=== PATIENT | female | born 1950 | race Caucasian/White ===

== ENCOUNTER 2019-08-09 09:23 | Outpatient (CLI) | payer MEDICARE, BC, SELFPAY ==
--- NOTE | ~2019-08-09 | US_ITS ---
EXAMINATION: US pelvic complete w TV EXAM DATE: 08/09/2019 10:29 INDICATION: Postmenopausal bleeding. TECHNIQUE: Pelvic transabdominal and transvaginal sonogram was performed. There are multiple graysca le and Doppler images available for interpretation. There is no prior study for comparison. FINDINGS: Uterus measures 8.1 x 4.1 x 4.9 cm, and is morphologically normal. Endometrial stripe nik sures 25 mm, abnormally thickened. There are multiple sizable nabothian cysts. There is no free pelvi c fluid. Right adnexa: The ovary is not identified. There is no adnexal mass. Left adnexa: The ovary is not identified. There is no adnexal mass. IMPRESSION: Significantly thickened endometrium, differential diagnosis including endometrial cancer and hyperplasia. Recommend histologic correlation. Reviewed, dictated and finalized at location B. [facility]ING [employer]TER IMPRESSION: Significantly thickened endometrium, differential diagnosis includi ng endometrial cancer and hyperplasia. Recommend histologic correlation.
== END 2019-08-09 09:24 | disposition home or self-care (01) ==
PROVIDERS: PCP Nurse Practitioner Adult Health; Visit Provider Obstetrics & Gynecology
DX: N95.0 Postmenopausal bleeding (principal); R93.89 Abnormal findings on diagnostic imaging of other specified body structures
CPT/HCPCS: 76830; 76856

== ENCOUNTER 2020-03-07 13:56 | Outpatient (CLI) | payer MEDICARE, BC, SELFPAY ==
--- NOTE | ~2020-03-07 | US_ITS ---
EXAMINATION: US venous doppler LE RT DATE: 03/07/2020 14:40 INDICATION: Right lower limb pain TECHNIQUE: Grayscale ultrasound images without and with compression and Doppler ultrasound images of the right lower extremity veins were obtained. COMPARISON: None. FINDINGS: The visualized portions of right common femoral vein, profunda (deep) femoral vein, femoral vein, pop liteal vein, peroneal trunk, posterior tibial veins, gastrocnemius vein and greater saphenous vein ou tflow are patent. The peroneal veins were unable to be visualized. IMPRESSION: 1. No deep venous thrombosis in the right lower limb. Reviewed, dictated and finalized at location A.
== END 2020-03-07 13:57 | disposition home or self-care (01) ==
PROVIDERS: PCP Nurse Practitioner Adult Health; Visit Provider Nurse Practitioner Adult Health
DX: M79.661 Pain in right lower leg (principal)
CPT/HCPCS: 93971

== ENCOUNTER 2020-12-03 14:30 | Outpatient (RCR) | payer MEDICARE, BC, SELFPAY ==
[2020-10-16 09:43] VITALS: BMI 42.0
[2020-10-16 09:50] VITALS: BMI 42.0
== END 2021-01-06 11:08 | disposition home or self-care (01) ==
LOC: ANHDMC 14:30
PROVIDERS: PCP Nurse Practitioner Adult Health; Visit Provider Nurse Practitioner Adult Health
DX: E11.65 Type 2 diabetes mellitus with hyperglycemia (principal); Z71.3 Dietary counseling and surveillance; Z71.89 Other specified counseling
CPT/HCPCS: 97802; G0108; G0109

== ENCOUNTER 2021-01-08 11:03 | Emergency (ER) | payer MEDICARE, BC, SELFPAY ==
--- NOTE | ~2021-01-08 | CT_ITS ---
EXAMINATION: CT brain wo con DATE: 01/08/2021 11:38 INDICATION: Dizziness TECHNIQUE: Computed tomography (CT) of the head was performed without intravenous contrast. Sagittal and coronal reconstructions were performed. The mA was adjusted according to patient size. Iterative reconstruction technique was employed. The dose-length product was 605.33 mGy-cm. COMPARISON: head CT dated 05/04/2017 and brain MR dated 05/05/2017 FINDINGS: No acute intracranial hemorrhage, acute infarction or abnormal extra axial fluid collection. There is moderate scattered white matter hypoattenuation consistent with chronic small vessel ischemic diseas e. Symmetric prominence of the sulci consistent with mild age-appropriate diffuse cerebral volume los s. Ventricles are normal and symmetric. No mass/mass effect. Complete opacification of the visualized left maxillary sinus and partial opacification of the right maxillary sinus with a large mucous rete ntion cyst. The orbits and mastoid air cells are normal. Intracranial calcified cerebral atherosclero sis is noted. IMPRESSION: 1. Age-related changes including mild diffuse volume loss and moderate scattered white matter hypoatt enuation consistent with chronic small vessel ischemic disease. 2. Chronic bilateral maxillary sinus disease. Reviewed, dictated and finalized at location A. IMPRESSION: 1. Age-related changes including mild diffuse volume loss and moderate scattere d white matter hypoattenuation consistent with chronic small vessel ischemic di sease. 2. Chronic bilateral maxillary sinus disease.
[2021-01-08 11:06] VITALS: BP 151/76; PULSE 81; RESP 16; TEMP 37.7; O2SAT 96
--- NOTE | 2021-01-08 11:16 | ECG_ITS ---
Measurements Intervals [place] Rate: 76 P: 45 CT: 184 QRS: 21 QRSD: 82 T: 39 QT: 370 QTc: 418 Interpretive Statements SINUS RHYTHM BASELINE ARTIFACT- I, II, AVR, AVL, V1 NORMAL ECG Electronically Signed On 01-08-2021 11:32:49 CDT by Matt Garcia D.O.
[2021-01-08 12:06] LABS: Basophils Percent Auto 0.3 % (0.2-1.2); Eosinophils Absolute Auto 0.2 K/mm3 (0-0.3); Hematocrit 38.6 % (37.0-47.0); Hemoglobin 12.6 g/dL (12.0-15.0); Immature Granulocyte Absolute 0.01 K/mm3 (0.00-0.031); Immature Granulocyte Percent A 0.2 % (0-0.5); Lymphocytes Absolute Auto 1.41 K/mm3 (0.9-3.2); Lymphocytes Percent Auto 21.5 % (18.3-44.2); Mean Corpuscular HGB Conc 32.6 g/dl (32-36); Mean Corpuscular Hemoglobin 30.4 pg (26-34); Mean Corpuscular Volume 93.2 fl (80-100); Mean Platelet Volume 9.8 fl (7.4-10.4); Monocytes Absolute Auto 0.6 K/mm3 (0.1-0.6); Monocytes Percent Auto 8.7 % (2.6-8.5); Neutrophils Absolute Auto 4.4 K/mm3 (1.3-6.7); Neutrophils Percent Auto 66.3 % (45.5-73.1); Platelet Count Result 211 k/mm3 (150-375); Red Blood Count 4.14 M/mm3 (4.2-5.4); Red Cell Distribution Width 13.6 % (11.5-14.5); White Blood Count 6.6 K/mm3 (4.5-10.0)
[2021-01-08 12:32] LABS: Alanine Aminotransferase 27 U/L (4-35); Albumin Level 4.3 g/dL (3.5-5.1); Alkaline Phosphatase 88 U/L (38-126); Anion Gap 9 mmol/L (8-16); Aspartate Amino Transferase 36 U/L (14-36); Bilirubin,Total 0.4 mg/dL (0.2-1.3); Blood Urea Nitrogen 23 mg/dL (7-17); Calcium 9.8 mg/dL (8.4-10.2); Carbon Dioxide 23 mmol/L (22-30); Chloride 108 mmol/L (98-107); Estimated CRCL calculation 61 ml/min; Estimated Glomerular Filt Rate > 60; Glucose 102 mg/dL (65-105); Potassium 4.4 mmol/L (3.4-5.0); Sodium 140 mmol/L (137-145)
[2021-01-08 12:40] LABS: Add Urine Microscopic? YES; Appearance Urine Clear (Clear); Bilirubin Urine Negative (Negative); Blood Urine Negative (Negative); Color Urine Yellow (Yellow); Glucose Urine UA Negative (Negative); Ketones Urine Negative (Negative); Leukocyte Esterase Ur Negative LEU/UL (Negative); Mucus Urine Rare /lpf; Nitrate Urine Negative (Negative); Protein Urine 1+ mg/dL (Negative); RBC Urine 0-2 /hpf (0-2); Specific Grav Ur 1.011 (1.001-1.035); Squamous Epithelial Cell Urine Few /hpf (Few); Urobilinogen Urine Negative mg/dL (<2.0); WBC Urine 0-3 /hpf
[2021-01-08] MEDS: LACTATED RINGERS 1,000 ML 999 ML IV CONT (13:03)
--- NOTE | 2021-01-08 13:09 | ED.DIZZY ---
HPI - Dizziness General Chief Complaint: Recheck/Abnormal Lab/Rx Stated Complaint: ELEVATED BP, DIZZY Time Seen by Provider: 01/08/21 12:34 Source: patient Mode of arrival: ambulatory Limitations: no limitations History of Present Illness HPI Narrative: Patient is a 70-year-old female complaining of sudden onset of dizziness, and when her daughter checked her blood pressure it was elevated at 170s over 90s started prior to arrival. Patient's blood pressure now down to 140s over 80s and dizziness resolved. Patient currently denies any symptoms. Patient denies any headache, speech or visual disturbance, focal weakness or numbness, unsteady gait, chest pain, shortness of breath, nausea, or vomiting. Related Data Home Medications Medication Instructions Recorded Confirmed allopurinol 100 mg tablet 100 mg PO DAILY 08/02/19 11/05/20 aspirin 81 mg tablet,delayed 81 mg PO DAILY 08/02/19 11/05/20 release cholecalciferol (vitamin D3) 50 2,000 unit PO DAILY 08/02/19 11/05/20 mcg (2,000 unit) tablet irbesartan 300 mg tablet 300 mg PO DAILY 08/02/19 11/05/20 metformin 500 mg tablet,extended 500 mg PO DAILY 08/02/19 11/05/20 release 24 hr oxybutynin chloride 5 mg tablet 5 mg PO DAILY 08/02/19 11/05/20 simvastatin 10 mg tablet 10 mg PO DAILY 08/02/19 11/05/20 vitamin B complex 1 tablet PO DAILY 08/02/19 11/05/20 cyanocobalamin (vitamin B-12) 500 mcg INTRANASAL 07/08/20 11/05/20 mcg/spray nasal spray levetiracetam 500 mg tablet 500 mg PO Q12H 07/08/20 11/05/20 tramadol 50 mg tablet 50 mg PO Q6H PRN 07/08/20 11/05/20 diclofenac sodium 1 % topical gel 2 g TOPICAL QID 08/08/20 11/05/20 levothyroxine 50 mcg capsule 50 mcg PO DAILY 08/08/20 11/05/20 dulaglutide 1.5 mg/0.5 mL 4.5 mg SUB-Q WEEKLY ml 11/03/20 11/05/20 subcutaneous pen injector glimepiride 2 mg tablet 1 mg PO QAM tablet 11/03/20 11/05/20 Allergies Allergy/AdvReac Type Severity Reaction Status Date / Time codeine Allergy Unknown Unknown Verified 11/03/20 10:29 hydrocodone Allergy Unknown Unknown Verified 11/03/20 10:29 morphine Allergy Unknown Unknown Verified 11/03/20 10:29 Review of Systems Review of Systems: All systems reviewed & are unremarkable except as noted in HPI and below Constitutional: Constitutional: Denies body ache(s), Denies chills, Denies excessive sweating, Denies fatigue, Denies fever(s), Denies headache(s), Denies lethargy, Denies malaise, Denies weakness and Denies weight loss Eyes: Eyes: Denies blurry vision, Denies change in vision and Denies loss of vision ENT: Denies dizziness, Denies ear discharge, Denies headache(s), Denies lip swelling, Denies epistaxis, Denies nasal congestion, Denies neck pain, Denies throat swelling and Denies tongue swelling Cardiovascular: Cardiovascular: Denies chest pain, Denies chest pain at rest, Denies chest pain with activity, Denies diaphoresis, Denies rapid heart rate, Denies edema, Denies irregular heart rhythm, Denies lightheadedness, Denies palpitations, Denies dyspnea and Denies dyspnea on exertion Respiratory: Respiratory: Denies chest congestion, Denies cough, Denies hemoptysis, Denies dyspnea and Denies dyspnea on exertion Gastrointestinal: Gastrointestinal: Denies abdominal pain, Denies melena, Denies hematochezia, Denies diarrhea, Denies nausea, Denies vomiting and Denies hematemesis Musculoskeletal: Musculoskeletal: Denies abnormal gait, Denies deformity, Denies joint swelling, Denies limited range of motion, Denies neck pain and Denies numbness Neurologic: Denies Abnormal speech present, Denies abnormal gait, Denies confusion, Denies headache(s), Denies focal weakness, Denies loss of vision, Denies numbness, Denies Other visual disturbances, Denies Sensory deficit (Neuro) and Denies weakness Psychiatric: Psychiatric: Denies confusion, Denies depression, Denies auditory hallucinations, Denies homicidal ideation and Denies suicidal ideation Endocrine: Endocrine: Denies cold intolerance, Denies excessive s
[2021-01-08 13:25] LABS: Troponin I < 0.012 ng/mL (0.000-0.034)
[2021-01-08 14:21] VITALS: BP 148/68; PULSE 64; RESP 17; O2SAT 100
== END 2021-01-08 14:22 | disposition home or self-care (01) ==
PROVIDERS: Emergency Medicine; Emergency Provider Emergency Medicine; PCP Nurse Practitioner Adult Health
DX: R42 Dizziness and giddiness (principal); I10 Essential (primary) hypertension; E11.9 Type 2 diabetes mellitus without complications; Z79.84 Long term (current) use of oral hypoglycemic drugs; E78.5 Hyperlipidemia, unspecified; E03.9 Hypothyroidism, unspecified; G40.909 Epilepsy, unspecified, not intractable, without status epilepticus
CPT/HCPCS: 36415; 70450; 80053; 81001; 84484; 85025; 93005; 96360; 99284; J7120

== ENCOUNTER 2021-02-17 11:42 | Outpatient (RCR) | payer MEDICARE, BC, SELFPAY | END 2021-02-17 11:57 | disposition home or self-care (01) | LOC: ANHDMC 11:42 | PROVIDERS: PCP Nurse Practitioner Adult Health; Visit Provider Nurse Practitioner Adult Health | DX: E11.65 Type 2 diabetes mellitus with hyperglycemia (principal); Z71.89 Other specified counseling | CPT/HCPCS: G0108 ==

== ENCOUNTER 2022-05-10 07:05 | Inpatient (IN) | payer MEDICARE, BC, SELFPAY ==
[2022-05-10] VITALS (23 sets, daily range): BP systolic 138–190; BP diastolic 74–133; PULSE 82–137; RESP 12–20; TEMP 36.8–37.2; O2SAT 92–99; BMI 42.1
--- NOTE | ~2022-05-10 | XR_ITS ---
EXAMINATION: XR chest 1V portable DATE: 05/10/2022 07:37 INDICATION: Cerebrovascular accident. TECHNIQUE: A single frontal view of the chest was obtained. COMPARISON: Chest 2 views 06/18/2006 FINDINGS: There is mild atelectasis in left lower lung zone. No pleural effusion or pneumothorax. The heart size is normal. There are surgical clips in left axilla. IMPRESSION: 1. Mild atelectasis in left lower lung zone. Reviewed, dictated and finalized at location A.
--- NOTE | ~2022-05-10 | XR_ITS ---
EXAM: XR abdomen/kub 1V DATE: 05/11/2022 16:20 HISTORY: check for coil . COMPARISON: None available. FINDINGS: Gallstones. Incompletely visualized bilateral uncomplicated appearing hip arthroplasties. Small left pleural effusion adjacent subsegmental atelectasis/consolidation. Normal bowel gas pattern . No organomegaly. No abnormal abdominal calcification. Regional bones and soft tissues normal for ag e. IMPRESSION: No unexpected radiopaque foreign body. Reviewed, dictated and finalized at location K.
--- NOTE | ~2022-05-10 | CT_ITS ---
EXAMINATION: CT brain wo con DATE: 05/10/2022 07:14 INDICATION: Cerebrovascular accident. Slurred speech. Right facial droop. TECHNIQUE: Computed tomography (CT) of the head was performed without intravenous contrast. The mA wa s adjusted according to patient size. Iterative reconstruction technique was employed. The dose-lengt h product was 605.33 mGy-cm. COMPARISON: Head CT 01/08/2021 FINDINGS: There are scattered areas of low attenuation in the cerebral white matter. There is no intr acranial hemorrhage, acute infarction, or abnormal intracranial mass lesion. The ventricles are nnii l in size. There is mucosal thickening in the paranasal sinuses. There are no pathologically enlarged lymph nodes. The mastoid air cells are normal. IMPRESSION: 1. Stable extensive nonspecific cerebral white matter disease, which likely represents chronic small vessel ischemic disease. 2. I discussed this case with Dr. Rivera. Reviewed, dictated and finalized at location A. IMPRESSION: 1. Stable extensive nonspecific cerebral white matter disease, which likely rep resents chronic small vessel ischemic disease. 2. I discussed this case with Dr. Rivera.
--- NOTE | ~2022-05-10 | MR_ITS ---
EXAMINATION: MR brain/brain stem wo/w con DATE: 05/12/2022 09:57 INDICATION: Cerebrovascular accident. TECHNIQUE: Magnetic resonance imaging (MRI) of the brain and brainstem was performed without and with 20 mL MultiHance intravenous contrast. COMPARISON: Brain MRI 05/05/2017, head CT 05/10/2022 FINDINGS: There are patchy acute infarcts involving left frontoparietal region with small area of int raparenchymal hemorrhage. There are scattered areas of nonspecific increased T2-weighted signal inten sity in the cerebral white matter. There is no abnormal mass lesion. There is mucosal thickening in t he paranasal sinuses including a large mucous retention cyst in right maxillary sinus and complete op acification of left maxillary sinus. The mastoid air cells are normal. The orbits are normal. IMPRESSION: 1. Patchy acute infarcts involving left frontoparietal region with small area of intraparenchymal hem orrhage. 2. Extensive nonspecific cerebral white matter disease, which likely represents chronic small vessel ischemic disease. Reviewed, dictated and finalized at location A. IMPRESSION: 1. Patchy acute infarcts involving left frontoparietal region with small area o f intraparenchymal hemorrhage. 2. Extensive nonspecific cerebral white matter disease, which likely represents chronic small vessel ischemic disease.
--- NOTE | ~2022-05-10 | CT_ITS ---
EXAMINATION: CTA brain carotid DATE: 05/10/2022 08:53 INDICATION: Right facial droop. Right arm weakness. TECHNIQUE: Computed tomographic angiography (CTA) of the head was performed with 100 mL Omnipaque-350 intravenous contrast. CTA of the neck was performed with intravenous contrast. Automated exposure co ntrol and iterative reconstruction technique were employed. The dose-length product was 1021.70 mGy-c m. Maximum intensity projection and volume rendered 3D-reconstructions were created by the technologi st on a separate workstation. COMPARISON: Head CT 05/10/2022, brain MRI 05/05/2017 FINDINGS: HEAD CTA: There are scattered areas of low attenuation in the cerebral white matter. There is no intr acranial hemorrhage, acute infarction, or abnormal intracranial mass lesion. The ventricles are nini l in size. There is mucosal thickening in the paranasal sinuses. The orbits are normal. The mastoid a ir cells are normal. The vertebral arteries are codominant. There is no significant stenosis of basil ar artery or the posterior cerebral arteries. There is no significant stenosis of the intracranial in ternal carotid arteries or anterior or middle cerebral arteries. Anterior communicating artery is nor mal. The posterior communicating arteries are normal. There is no aneurysm. NECK CTA: There are no pathologically enlarged lymph nodes. There is no significant stenosis of the v ertebral arteries. There is mild plaque in the proximal internal carotid arteries. There is 0% stenos is of the proximal right internal carotid artery relative to normal distal artery lumen diameter (DON CET criteria). There is 0% stenosis of the proximal left internal carotid artery relative to normal d istal artery lumen diameter. There is severe cervical spondylosis. IMPRESSION: 1. Extensive nonspecific cerebral white matter disease, which likely represents chronic small vessel ischemic disease. 2. No aneurysm or significant intracranial arterial stenosis. 3. 0% stenosis of the proximal internal carotid arteries relative to normal distal artery lumen diame ters (NASCET criteria). Reviewed, dictated and finalized at location A. IMPRESSION: 1. Extensive nonspecific cerebral white matter disease, which likely represents chronic small vessel ischemic disease. 2. No aneurysm or significant intracranial arterial stenosis. 3. 0% stenosis of the proximal internal carotid arteries relative to normal dis glory artery lumen diameters (NASCET criteria).
--- NOTE | 2022-05-10 07:31 | ED.NEUROSD ---
HPI - Neuro Symptoms/Deficit General Chief Complaint: Suspected CVA Stated Complaint: code stroke History of Present Illness HPI Narrative: This is a 72-year-old female presenting for a CVA. last known normal was 11:00 p.m. last night. The patient woke up at 4:00 a.m. to go to the restroom and noticed she was unable to move her right arm. She then called an ambulance came to the hospital. Patient notes that she has right facial droop and right arm weakness. She is also having word-finding difficulty. Related Data Home Medications Medication Instructions Recorded Confirmed allopurinol 100 mg tablet 100 mg PO DAILY 08/02/19 04/06/21 aspirin 81 mg tablet,delayed 81 mg PO DAILY 08/02/19 04/06/21 release (Adult Aspirin Regimen) cholecalciferol (vitamin D3) 50 2,000 unit PO DAILY 08/02/19 04/06/21 mcg (2,000 unit) tablet irbesartan 300 mg tablet 300 mg PO DAILY 08/02/19 04/06/21 metformin 500 mg tablet,extended 500 mg PO DAILY 08/02/19 04/06/21 release 24 hr oxybutynin chloride 5 mg tablet 5 mg PO DAILY 08/02/19 04/06/21 simvastatin 10 mg tablet 10 mg PO DAILY 08/02/19 04/06/21 vitamin B complex (B 1 tablet PO DAILY 08/02/19 04/06/21 Complex-Vitamin B12 tablet) cyanocobalamin (vitamin B-12) 500 mcg intranasal 07/08/20 04/06/21 mcg/spray nasal spray (Nascobal) levetiracetam 500 mg tablet 500 mg PO Q12H 07/08/20 04/06/21 levothyroxine 50 mcg capsule 50 mcg PO DAILY 08/08/20 04/06/21 dulaglutide 1.5 mg/0.5 mL 4.5 mg subcut WEEKLY 11/03/20 04/06/21 subcutaneous pen injector ([facility]) glimepiride 2 mg tablet 1 mg PO QAM 11/03/20 04/06/21 Allergies Allergy/AdvReac Type Severity Reaction Status Date / Time codeine Allergy Unknown Unknown Verified 04/06/21 13:47 hydrocodone Allergy Unknown Unknown Verified 04/06/21 13:47 morphine Allergy Unknown Unknown Verified 04/06/21 13:47 Review of Systems Review of Systems: CONSTITUTIONAL: Denies night sweats. EYES: No eye pain ENT: Denies rhinorrhea CARDIOVASCULAR: Denies palpitations RESPIRATORY: Denies hemoptysis GASTROINTESTINAL: Denies hematemesis GENITOURINARY: Denies hematuria. SKIN: Denies rash MUSCULOSKELETAL: Denies myalgia. NEUROLOGIC: Denies weakness. PSYCHIATRIC: Denies delusions PMFSH Past Medical History Medical History Breast cancer (~09/11/18) Diabetes History of endometrial cancer (~09/12/19) History of Hyperlipemia Hypertension Hyperuricemia Hypothyroid Neuropathy Obesity, morbid, BMI 40.0-49.9 Renal arterial aneurysm (~02/2009) Seizure disorder Vitamin D deficiency Surgical History Surgical History History of arthroscopy of right knee (~2009) History of section History of knee surgery (~03/26/19) History of lumpectomy of left breast History of right hip replacement [place] teeth removed Family History Family History Mother Breast cancer Grandparent Carcinoma of colon Other Diabetes mellitus Family history of arthritis Family history of congenital heart disease Family history of malignant neoplasm Family history of multiple sclerosis Family history of thyroid disease Social History Social History Smoking status: Never smoker Second hand tobacco smoke exposure: No Alcohol intake: current Spiritual care concerns: No Exam Narrative: APPEARANCE: Patient is tearful Head atraumatic. EYES: PERRLA/EOMI, NOSE: Normal no drainage NECK: Supple, Trachea midline RESPIRATORY: CTAB, No increased work of breathing. CARDIOVASCULAR: S1S2 appreciated ABDOMINAL: Soft, nontender, nondistended, MUSCULOSKELETAl: No obvious deformities NEURO: Alert. right-sided facial droop. Decreased strength in the right upper extremity. Normal strength the other 3 of 4 extremities. Sensation light t
[2022-05-10 07:34] LABS: Basophils Absolute Auto 0.1 K/mm3 (0.0-0.1); Basophils Percent Auto 0.7 % (0.2-1.2); Eosinophils Absolute Auto 0.2 K/mm3 (0-0.3); Eosinophils Percent Auto 3.4 % (0-4.4); Hematocrit 38.9 % (37.0-47.0); Hemoglobin 12.6 g/dL (12.0-15.0); Immature Granulocyte Absolute 0.01 K/mm3 (0.00-0.031); Immature Granulocyte Percent A 0.1 % (0-0.5); Lymphocytes Absolute Auto 1.42 K/mm3 (0.9-3.2); Lymphocytes Percent Auto 19.9 % (18.3-44.2); Mean Corpuscular HGB Conc 32.4 g/dl (32-36); Mean Corpuscular Hemoglobin 30.4 pg (26-34); Mean Corpuscular Volume 93.7 fl (80-100); Mean Platelet Volume 9.9 fl (7.4-10.4); Monocytes Absolute Auto 0.5 K/mm3 (0.1-0.6); Monocytes Percent Auto 7.6 % (2.6-8.5); Neutrophils Absolute Auto 4.9 K/mm3 (1.3-6.7); Neutrophils Percent Auto 68.3 % (45.5-73.1); Platelet Count Result 204 k/mm3 (150-375); Red Blood Count 4.15 M/mm3 (4.2-5.4); Red Cell Distribution Width 13.3 % (11.5-14.5); White Blood Count 7.1 K/mm3 (4.5-10.0)
--- NOTE | 2022-05-10 07:39 | ECG_ITS ---
Measurements Intervals [place] Rate: 139 P: 182 [place]: 158 QRS: 51 QRSD: 77 T: -17 QT: 296 QTc: 450 Interpretive Statements ATRIAL TACHYCARDIA SUSPECT ATYPICAL ATRIAL FLUTTER LOW QRS VOLTAGE IN PRECORDIAL LEADS [QRS DEFLECTION < 1.0 mV IN CHEST LEADS] SEPTAL MYOCARDIAL INFARCTION , PROBABLY OLD [40+ ms Q WAVE IN V1/V2] COMPARED TO ECG 01/08/2021 11:21:38 CURRENT RHYTHM REPLACES SINUS Electronically Signed On 05-10-2022 12:54:43 CDT by Sandor Hernandez M.D.
[2022-05-10 07:44] LABS: INR 1.1; Prothrombin Time 13.8 Seconds (11.1-14.7)
[2022-05-10 07:45] LABS: Alanine Aminotransferase 23 U/L (6-35); Albumin Level 4.3 g/dL (3.5-5.1); Alkaline Phosphatase 128 U/L (38-126); Anion Gap 14 mmol/L (8-16); Aspartate Amino Transferase 23 U/L (14-36); Bilirubin,Total 0.4 mg/dL (0.2-1.3); Blood Urea Nitrogen 20 mg/dL (7-17); Calcium 9.3 mg/dL (8.4-10.2); Carbon Dioxide 23 mmol/L (22-30); Chloride 106 mmol/L (98-107); Estimated Glomerular Filt Rate > 60; Glucose 169 mg/dL (65-110); Partial Thromboplastin Time 29.3 SECONDS (22.3-36.8); Potassium 4.3 mmol/L (3.4-5.0); Sodium 143 mmol/L (137-145)
[2022-05-10 07:57] LABS: Troponin I < 0.012 ng/mL (0.000-0.034)
[2022-05-10] MEDS: ONDANSETRON INJ 4 MG/2 ML VIAL IV PUSH (08:23)
[2022-05-10] MEDS: ASPIRIN 81 MG CHEWABLE TABLET 324 MG PO (09:45)
[2022-05-10 12:33] LABS: SARS-CoV-2 RNA PCR Negative
--- NOTE | 2022-05-10 12:50 | WPDNEURCNPN ---
Consult date: 05/10/22 Reason for consult: stroke HPI: Kim Manuel is a 72 year old female admitted to the hospital through the emergency room with history of being last known normal at 11:00 p.m. waking up at 4:00 a.m. to go to the bathroom when she was unable to move her right upper extremity. He then called an ambulance came to the hospital and on initial evaluation was noted to have right facial droop with right upper extremity weakness. Patient had been taking aspirin 81 mg daily in addition to irbesartan 300 mg daily metformin 500 mg daily extended release simvastatin 10 mg daily levetiracetam 500 mg q.12 hours with history of being allergic to codeine hydrocodone and morphine, with no history of smoking though currently drinking an initial exam consistent with a right-sided facial droop and right upper extremity weakness, normal routine blood studies with glucose of 169 SARS-CoV-2 id negative on 05/[address] scan of the head negative for the bleed and CTA with extensive nonspecific white matter disease no aneurysm and no significant intracranial arterial stenosis also 0% stenosis of the proximal internal Review of Systems Review of Systems: All systems reviewed & are unremarkable except as noted in HPI and below PMFSH Past Medical History Medical History Breast cancer (~09/11/18) Diabetes History of endometrial cancer (~09/12/19) History of Hyperlipemia Hypertension Hyperuricemia Hypothyroid Neuropathy Obesity, morbid, BMI 40.0-49.9 Renal arterial aneurysm (~02/2009) Seizure disorder Vitamin D deficiency Surgical History Surgical History History of arthroscopy of right knee (~2009) History of section History of knee surgery (~03/26/19) History of lumpectomy of left breast History of right hip replacement [place] teeth removed Family History Family History Mother Breast cancer Grandparent Carcinoma of colon Other Diabetes mellitus Family history of arthritis Family history of congenital heart disease Family history of malignant neoplasm Family history of multiple sclerosis Family history of thyroid disease Social History Social History Smoking status: Never smoker Second hand tobacco smoke exposure: No Alcohol intake: current Spiritual care concerns: No Meds Home Medications and Allergies Home Medications Medication Instructions Recorded Confirmed Type allopurinol 100 mg tablet 100 mg PO DAILY 08/02/19 04/06/21 History aspirin 81 mg tablet,delayed 81 mg PO DAILY 08/02/19 04/06/21 History release (Adult Aspirin Regimen) cholecalciferol (vitamin D3) 50 2,000 unit PO DAILY 08/02/19 04/06/21 History mcg (2,000 unit) tablet irbesartan 300 mg tablet 300 mg PO DAILY 08/02/19 04/06/21 History metformin 500 mg tablet,extended 500 mg PO DAILY 08/02/19 04/06/21 History release 24 hr oxybutynin chloride 5 mg tablet 5 mg PO DAILY 08/02/19 04/06/21 History simvastatin 10 mg tablet 10 mg PO DAILY 08/02/19 04/06/21 History vitamin B complex (B 1 tablet PO DAILY 08/02/19 04/06/21 History Complex-Vitamin B12 tablet) cyanocobalamin (vitamin B-12) 500 mcg intranasal 07/08/20 04/06/21 History mcg/spray nasal spray (Nascobal) levetiracetam 500 mg tablet 500 mg PO Q12H 07/08/20 04/06/21 History levothyroxine 50 mcg capsule 50 mcg PO DAILY 08/08/20 04/06/21 History dulaglutide 1.5 mg/0.5 mL 4.5 mg subcut WEEKLY 11/03/20 04/06/21 History subcutaneous pen injector ([facility]) glimepiride 2 mg tablet 1 mg PO QAM 11/03/20 04/06/21 History celecoxib 200 mg capsule 200 mg PO DAILY #90 caps 02/02/21 04/06/21 Rx hydrocodone 5 mg-acetaminophen 325 1 - 2 tablet PO Q12H PRN pain #30 02/02/21 04/06/21 Rx mg tablet tabs Allergies Allergy/AdvReac Type Sev
--- NOTE | 2022-05-10 14:00 | PM.IMHP ---
H&P: HPI History of Present Illness Date/Time: 05/10/22 14:00 Chief Complaint: Right arm weakness And difficulty speaking. Narrative: This is a very pleasant 72-year-old female with hypertension, dyslipidemia, diabetes, and hypothyroidism who presented to the emergency department via EMS from home for evaluation of right arm weakness and difficulty speaking. She was in her usual state of health when she went to bed at 23:00 last night. She got up at 04:00 to use the restroom at which time she noticed that she was having difficulties moving her right arm. She phoned her family members to ask for help at which time they noticed that she was having difficulty speaking as well. Fast ED score on EMS arrival was 2 and she was sent immediately to CT scan where a CTA of the head and neck showed extensive nonspecific cerebral white matter disease but no acute findings. Clinically she has had a stroke and she is being admitted in this setting for workup. At the time my evaluation she indicates that the strength in her right arm has improved though she continues to have expressive aphasia. The only complaint she has at today but my evaluation is a diffuse, generalized headache. She denies vertigo, auditory visual changes, dysphagia, chest pain, pleuritic pain, palpitations, sensations of racing heart, shortness of breath, nausea, and vomiting. She has no history of prior stroke. No known history of cardiac dysrhythmia however she sounds to be tachycardic and irregular rhythm at the time of my evaluation. Review of Systems Review of Systems: Twelve systems were reviewed and are negative except for as per HPI. [facility] Past Medical History Medical History Breast cancer (~09/11/18) Diabetes History of endometrial cancer (~09/12/19) History of Hyperlipemia Hypertension Hyperuricemia Hypothyroid Neuropathy Obesity, morbid, BMI 40.0-49.9 Renal arterial aneurysm (~02/2009) Seizure disorder Vitamin D deficiency Surgical History Surgical History History of arthroscopy of right knee (~2009) History of section History of knee surgery (~03/26/19) History of lumpectomy of left breast History of right hip replacement [place] teeth removed Family History Family History Mother Breast cancer Grandparent Carcinoma of colon Other Diabetes mellitus Family history of arthritis Family history of congenital heart disease Family history of malignant neoplasm Family history of multiple sclerosis Family history of thyroid disease Social History Social History Smoking status: Never smoker Second hand tobacco smoke exposure: No Alcohol intake: never Substance use: never Has the Lack of Transportation Kept You From Medical Appointments or From Getting Medications?: No Within the Past 12 Months, Were You Worried Whether Your Food Would Run Out Before You Got Money to Buy More?: Never True What is Your Housing Situation Today?: I Have Housing Are You Worried That in the Next 2 Months, You May Not Have Your Own Housing to Live In?: No Do You Have Trouble Paying Your Heating Or Electricity Bill?: No Do You Have Trouble Paying For Medicines?: No Are You Currently Unemployed and Looking for Work?: No Highest Level of Education Completed: Bachelor's Degree Do You Have Trouble With Childcare or the Care of a Family Member?: No Spiritual care concerns: No Meds Home Medications and Allergies Home Medications Medication Instructions Recorded Confirmed Type allopurinol 100 mg tablet 100 mg PO DAILY 08/02/19 05/10/22 History aspirin 81 mg tablet,delayed 81 mg PO DAILY 08/02/19 05/10/22 History release (Adult Aspirin Regimen) cholecalciferol (vitamin D3) 50 2,000 unit PO DAILY 08/02/19 05/10/22 History mcg (2,
--- NOTE | 2022-05-10 16:21 | PCSTNOTE ---
Please refer to the Bedside Swallow Evaluation in the EMR. Please note, silent aspiration cannot be ruled out at bedside.
[2022-05-11] VITALS (7 sets, daily range): BP systolic 113–117; BP diastolic 65–74; PULSE 79–94; RESP 16–17; TEMP 36.4–37.1; O2SAT 94–98
--- NOTE | 2022-05-11 00:01 | ECHO_ITS ---
Patient Info Name: Kim Manuel Age: 72 years : 1950 Gender: Female Ht: 64 in Wt: 245 lbs BSA: 2.30 m2 HR: 88 bpm BP: 139 / 80 mmHg Heart Rhythm: Sinus Rhythm Technical Quality: Fair Exam Date: 05/11/2022 7:56 AM Exam Location: [facility] Pulmonary Patient Status: Outpatient Admit Date: 05/10/2022 Staff Ordering Physician: Kisha Woody PA-C Glass Embosser: Jigna Felipe RDCS Attending Provider: Lan Lockhart MD Referring Physician: Bong BLAIR; Exam Type: CA echo dop bubble study w con Study Info Indications - CVA Complete two-dimentional, color flow and Doppler transthoracic echocardiogram is performed with agitated saline and with contrast to opacify the left ventricle and to improve the delineation of the left ventricle endocardial borders. Contrast/Agitated Saline Contrast/Ag. Saline: Definity Amount: 3.00 ml Administered By: Jigna Felipe RDCS Existing IV Access: Yes IV Access Condition: patent with no signs of infiltration Contrast/Ag. Saline: Agitated Saline Amount: 30.00 ml Administered By: Jigna Felipe RDCS Existing IV Access: Yes IV Access Condition: patent with no signs of infiltration Summary 1. Left ventricular systolic function is normal, estimated at >70%. 2. The left ventricular diastolic function is grade I diastolic dysfunction. 3. Right ventricular systolic function is normal. 4. No significant valvular disease. 5. Negative bubble study. Left Ventricle Left ventricular chamber dimension is normal. Left ventricular systolic function is normal, estimated at >70%. There is no increased left ventricular wall thickness. The left ventricular diastolic function is grade I diastolic dysfunction. Right Ventricle Right ventricular chamber dimension is normal. Right ventricular systolic function is normal. Left Atria Left atrial chamber dimension is normal. Right Atria Right atrial chamber dimension is normal. Atrial Septum Intact interatrial septum visualized by agitated saline imaging. Aortic Valve The aortic valve is not well visualized. There is no aortic valve stenosis. There is no aortic valve regurgitation. Pulmonic Valve The pulmonic valve is not well visualized. Mitral Valve The mitral valve has normal leaflets. There is no mitral valve stenosis. There is no mitral valve regurgitation. Tricuspid Valve The tricuspid valve leaflets are not well visualized. There is no significant tricuspid valve stenosis. There is trace tricuspid valve regurgitation. Pericardium/Pleural There is no pericardial effusion. Aorta The aortic root size at the sinus of Valsalva is normal. Left Ventricular Outflow Tract Name Value Normal LVOT 2D LVOT Diameter 2.0 cm LVOT Doppler LVOT Peak Gradient 4 mmHg LVOT Mean Gradient 2 mmHg LVOT VTI 18 cm LVOT VTI/AV VTI Ratio 0.7 LVOT Stroke Volume
[2022-05-11] MEDS: LEVOTHYROXINE SODIUM 50 MCG TABLET PO (06:58)
[2022-05-11 07:01] LABS: Hematocrit 38.3 % (37.0-47.0); Hemoglobin 12.3 g/dL (12.0-15.0); Mean Corpuscular HGB Conc 32.1 g/dl (32-36); Mean Corpuscular Hemoglobin 30.3 pg (26-34); Mean Corpuscular Volume 94.3 fl (80-100); Platelet Count Result 213 k/mm3 (150-375); Red Blood Count 4.06 M/mm3 (4.2-5.4); Red Cell Distribution Width 13.3 % (11.5-14.5); White Blood Count 6.4 K/mm3 (4.5-10.0)
[2022-05-11 07:06] LABS: Alanine Aminotransferase 22 U/L (6-35); Alkaline Phosphatase 100 U/L (38-126); Anion Gap 8 mmol/L (8-16); Aspartate Amino Transferase 26 U/L (14-36); Bilirubin,Total 0.5 mg/dL (0.2-1.3); Blood Urea Nitrogen 17 mg/dL (7-17); Calcium 9.1 mg/dL (8.4-10.2); Carbon Dioxide 26 mmol/L (22-30); Chloride 104 mmol/L (98-107); Estimated CRCL calculation 60 ml/min; Estimated Glomerular Filt Rate > 60; Glucose 153 mg/dL (65-110); Potassium 4.2 mmol/L (3.4-5.0); Sodium 138 mmol/L (137-145)
[2022-05-11 08:00] LABS: Hemoglobin A1C 7.2 % (<5.7)
[2022-05-11 08:01] LABS: Thyroid Stimulating Hormone Reflex 0.176 uIU/mL (0.465-4.68)
[2022-05-11 08:32] LABS: Free T4 Free Thyroxine Reflex 1.23 ng/dL (0.78-2.19)
[2022-05-11] MEDS: PERFLUTREN LIPID MICROSPHERES 1.5 ML VIAL DILUTED TO 10 ML TOTAL VOLUME IV PUSH (08:33)
--- NOTE | 2022-05-11 08:33 | IVDEFINITY ---
Prior to administration of IV Definity the patient was educated on the risks and benefits of the imaging enhancing agent including potential adverse side effects. The patient verbalized understanding. Allergies were verified. No exclusion criteria were identified and at least one of the following inclusion criteria were met: 1) physician request, 2) patient technically difficult to image (per the [place] [employer] Echocardi[employer] guidelines of two or more segments not discernable within the apical view), or 3) questionable left ventricular function. ?
[2022-05-11] MEDS: GLIMEPIRIDE 2 MG TABLET PO (09:01)
[2022-05-11] MEDS: OXYBUTYNIN CHLORIDE 5 MG TABLET PO (09:01)
[2022-05-11] MEDS: CHOLECALCIFEROL 1,000 UNITS TABLET 2000 UNITS PO (09:01)
[2022-05-11] MEDS: levETIRAcetam 500 MG TABLET PO ×2 (09:02→20:56)
[2022-05-11] MEDS: CYANOCOBALAMIN 500 MCG TABLET PO (09:02)
[2022-05-11] MEDS: IRBESARTAN 150 MG TABLET 300 MG PO (09:02)
[2022-05-11 09:24] LABS: Glucose Point of Care 193 mg/dl (65-105)
[2022-05-11 09:36] LABS: Total Triiodothyronine (T3) 1.04 NG/ML (0.97-1.69)
[2022-05-11 11:35] LABS: Glucose Point of Care 149 mg/dl (65-105)
--- NOTE | 2022-05-11 12:02 | PM.IMPN ---
Progress Note: A&P Assessment and Plan (1) Cerebrovascular accident: Code(s): I63.9 - Cerebral infarction, unspecified Status: Acute Assessment and Plan: The patient presented to the ED after waking up with neurologic symptoms involving her speech and RUE. Her last known normal was at 23:00 and NIH Stroke Scale on arrival to the ER was 5. Consider seizure but felt less likely. CTA of the head and neck on arrival did not show any acute findings or large vessel occlusions. CT head showing stable extensive nonspecific cerebral white matter disease c/w chronic small vessel ischemic disease. ASA 324mg given; she was outside of the window for tPA PT/ OT / ST ordered Neurology consult MRI Brain but concern that she may have a renal coil (KUB does not reveal any FB) Continue ASA. Change to high dose Lipitor. (2) Atrial flutter: Code(s): I48.92 - Unspecified atrial flutter Status: Acute Assessment and Plan: Patient with atrial tachycardia versus atrial flutter. Cardiology was consulted and EKG and telemetry strips were reviewed. Discussed personally with Cardiology. It was felt that her rhythm strips are more consistent with paroxysmal atrial tachycardia and not atrial flutter. Echocardiogram showing EF 70% with grade 1 diastolic dysfunction and negative bubble study. No significant valvular disease. Metoprolol added to try to control rhythm but will hold since not AFlutter and allow for permissive HTN. Continue telemetry. Appreciate Cardiology input. Home with 14 day event monitor. Resume metoprolol in 1-2 days. (3) Type 2 diabetes mellitus: Code(s): E11.9 - Type 2 diabetes mellitus without complications Status: Acute Assessment and Plan: A1c 7.2. The patient's blood glucose was reviewed on 05/11 Glucose remains well controlled. Continue AccuCheks covering with sliding scale. Hypoglycemia protocol available as needed. Continue current medications. (4) Hypertension: Code(s): I10 - Essential (primary) hypertension Status: Acute Assessment and Plan: Patient's blood pressure was reviewed on 05/11 Blood pressure was elevated with SBP 150-190 but improved since yesterday. Will continue current medications. (5) Seizure disorder: Code(s): G40.909 - Epilepsy, unspecified, not intractable, without status epilepticus Status: Acute Assessment and Plan: he had a seizure about 5 yrs ago possibly related to medications. Started on Keppra. No recurrence. (6) Hypothyroid: Code(s): E03.9 - Hypothyroidism, unspecified Status: Acute Assessment and Plan: TSH noted to be low at 0.17. FT4 is normal. Continue levothyroxine at current dose. Subjective Date/time seen: 05/11/22 12:02 Interval history: 72-year-old female with diabetes, hypertension and seizure disorder here for stroke-like symptoms. Patient awoke with right hand weakness and numbness. Her speech was garbled. She is not sure if she had right facial droop. She states her right lower extremity was not involved. No palpitations or chest pain. No new medications. She has not had IV urine incontinence when she woke up. She has been off her Trulicity since March. Her glucose has been running 120-140 in the morning since that time. Exam Narrative: AF 98.3 138/89 126 20 95% ra Gen - NARD Chest - Bibasilar inspiratory crackles. Normal respiratory rate CV - RRR S1/S2. Telemetry showing runs of narrow complex regular tachycardia probably atril flutter. Abd - Soft, NT/ND, Positive BS Ext - No pedal edema Neuro - Alert and oriented. some word-finding problems. Right hip flexor 3/5. Right upper extremity 4/5. Psych - Nml mood and affect. Does become frustrated related to the word-finding problems. Skin - Warm and dry Objective Data Vital Signs Vital Signs: Vital Signs - 24 hr 05/10/22 12:11 05/10/22 12:15 05/10/22
[2022-05-11] MEDS: ACETAMINOPHEN 500 MG TABLET PO (12:58)
[2022-05-11] MEDS: METOPROLOL TARTRATE 25 MG TABLET PO (12:59)
--- NOTE | 2022-05-11 15:38 | PM.CNCAR ---
Assessment and Plan Assessment and plan (1) Atrial tachycardia, paroxysmal: Code(s): I47.1 - Supraventricular tachycardia Status: Acute Assessment and Plan: Patient is asymptomatic, hemodynamically stable ECG shows likely atrial tachycardia. Echo reviewed. Normal LVEF, no significant valvular disease, negative bubble study. Review of telemetry shows multiple brief episodes of rapid onset and rapid offset tachycardia with ventricular rates up to the 130s. There are also episodes of sinus tachycardia along with sinus rhythm with frequent PACs. Appears to be most likely atrial tachycardia. I do not see evidence of atrial flutter. No evidence of atrial fibrillation either. Metoprolol as already been started. Can titrate up dose as needed. TSH already checked and was low, however, T4 and T3 WNL. Recommend to discharge patient home with a 14-day event monitor. Patient can follow-up with us in clinic to discuss results of the event monitor. History of Present Illness History of Present Illness Consult date/time: 05/11/22 15:38 Requesting physician: Lan Lockhart MD Consult reason: Other (Tachycardia) Reason For Visit: CVA Narrative: Patient is a 72-year-old female with a history of hypertension, hyperlipidemia, diabetes, hypothyroidism who we are consulted for tachycardia. Patient presented to the ED with right arm weakness and difficulty speaking. Patient is being worked up for a possible stroke. CT showed chronic small vessel disease. MRI brain is pending at this time. Patient has no known cardiac issues in the past. Denies chest pain, palpitations, shortness of breath. Main complaint is pain in knees, shoulders. Review of Systems Review of Systems: 12-point ROS obtained. Negative, unless stated in HPI. [facility] Past Medical History Medical History Breast cancer (~09/11/18) Diabetes History of endometrial cancer (~09/12/19) History of Hyperlipemia Hypertension Hyperuricemia Hypothyroid Neuropathy Obesity, morbid, BMI 40.0-49.9 Renal arterial aneurysm (~02/2009) Seizure disorder Vitamin D deficiency Surgical History Surgical History History of arthroscopy of right knee (~2009) History of section History of knee surgery (~03/26/19) History of lumpectomy of left breast History of right hip replacement [place] teeth removed Family History Family History Mother Breast cancer Grandparent Carcinoma of colon Other Diabetes mellitus Family history of arthritis Family history of congenital heart disease Family history of malignant neoplasm Family history of multiple sclerosis Family history of thyroid disease Social History Social History Smoking status: Never smoker Second hand tobacco smoke exposure: No Alcohol intake: never Substance use: never Has the Lack of Transportation Kept You From Medical Appointments or From Getting Medications?: No Within the Past 12 Months, Were You Worried Whether Your Food Would Run Out Before You Got Money to Buy More?: Never True What is Your Housing Situation Today?: I Have Housing Are You Worried That in the Next 2 Months, You May Not Have Your Own Housing to Live In?: No Do You Have Trouble Paying Your Heating Or Electricity Bill?: No Do You Have Trouble Paying For Medicines?: No Are You Currently Unemployed and Looking for Work?: No Highest Level of Education Completed: Bachelor's Degree Do You Have Trouble With Childcare or the Care of a Family Member?: No Spiritual care concerns: No Meds Home Medications and Allergies Home Medications Medication Instructions Recorded Confirmed Type allopurinol 100 mg tablet 100 mg PO DAILY 08/02/19 05/10/22 History aspirin 81 mg tablet,delayed 81 mg PO DAILY 08/02/19
--- NOTE | 2022-05-11 16:12 | PCPTNOTE ---
Attempted PT evaluation, pt getting an echo. Will follow.
[2022-05-11 17:01] LABS: Glucose Point of Care 145 mg/dl (65-105)
[2022-05-11] MEDS: ACETAMINOPHEN 325 MG TABLET 650 MG PO ×2 (17:18→20:55)
[2022-05-11] MEDS: ASPIRIN 81 MG ENTERIC TABLET PO (20:56)
[2022-05-11] MEDS: ATORVASTATIN 40 MG TABLET PO (20:56)
[2022-05-11] MEDS: allopurinoL 100 MG TABLET PO (20:56)
[2022-05-11 21:22] LABS: Glucose Point of Care 194 mg/dl (65-105)
[2022-05-12] VITALS: PULSE 80
[2022-05-12 04:00] VITALS: PULSE 80
[2022-05-12] MEDS: LEVOTHYROXINE SODIUM 50 MCG TABLET PO (05:57)
[2022-05-12] MEDS: ACETAMINOPHEN 325 MG TABLET 650 MG PO ×3 (05:59→13:54)
[2022-05-12 06:00] VITALS: BP 142/88; PULSE 93; RESP 16; TEMP 36.3; O2SAT 97
[2022-05-12 08:00] VITALS: PULSE 84
[2022-05-12 08:20] LABS: Glucose Point of Care 151 mg/dl (65-105)
[2022-05-12] MEDS: OXYBUTYNIN CHLORIDE 5 MG TABLET PO (08:43)
[2022-05-12] MEDS: IRBESARTAN 150 MG TABLET 300 MG PO (08:43)
[2022-05-12] MEDS: CYANOCOBALAMIN 500 MCG TABLET PO (08:43)
[2022-05-12] MEDS: GLIMEPIRIDE 2 MG TABLET PO (08:43)
[2022-05-12] MEDS: CHOLECALCIFEROL 1,000 UNITS TABLET 2000 UNITS PO (08:43)
[2022-05-12] MEDS: levETIRAcetam 500 MG TABLET PO (08:43)
[2022-05-12] MEDS: ONDANSETRON INJ 4 MG/2 ML VIAL IV PUSH ×2 (09:31→14:05)
[2022-05-12] MEDS: INSULIN ASPART (*BKC) 100 UNITS/ML SUB-Q (11:46)
[2022-05-12 11:47] LABS: Glucose Point of Care 209 mg/dl (65-105)
[2022-05-12 12:00] VITALS: PULSE 92
--- NOTE | 2022-05-12 12:32 | PM.TDS ---
Transfer Discharge Sum: Prov Provider Date of admission: 05/11/22 14:41 Primary care physician: Duyen Vasquez, SITE SPECIALIST Admitting clinician: Kal Lockhart MD Consults: 05/10/22 Consult to Physician Routine Comment: Consulting Provider: Rush Hernández Reason for consultation: CVA Has provider been notified: Yes 05/11/22 12:06 Consult to Physician Routine Comment: spoke to office @1309(,us) Consulting Provider: Dariana Bangura call center coordinator/MD group to consult: cardiology Reason for consultation: AFlutter Has provider been notified: Yes 05/12/22 Consult to Physician Routine Comment: Consulting Provider: Rush Hernández Reason for consultation: multi infarct L frontal parietal region w hemorrhagic conversion Has provider been notified: Yes Attending physician on discharge: Makayla Pressley Anticipated date of transfer: 05/12/22 Receiving physician/facility: [facility] DS: Admitting Diagnosis Discharge Date 05/12/22 Admitting Diagnosis (1) Cerebrovascular accident: ?Code(s): I63.9 - Cerebral infarction, unspecified ?Status:?Acute (2) Type 2 diabetes mellitus: ?Code(s): E11.9 - Type 2 diabetes mellitus without complications ?Status:?Acute (3) Hypertension: ?Code(s): I10 - Essential (primary) hypertension ?Status:?Acute (4) Seizure disorder: ?Code(s): G40.909 - Epilepsy, unspecified, not intractable, without status epilepticus ?Status:?Acute (5) Hypothyroid: ?Code(s): E03.9 - Hypothyroidism, unspecified ?Status:?Acute DS: Discharge Diagnosis Discharge Diagnosis (1) Intraparenchymal hemorrhage of brain: Code(s): I61.9 - Nontraumatic intracerebral hemorrhage, unspecified Status: Acute (2) Atrial tachycardia, paroxysmal: Code(s): I47.1 - Supraventricular tachycardia Status: Acute (3) Atrial flutter: Code(s): I48.92 - Unspecified atrial flutter Status: Acute (4) Hypothyroid: Code(s): E03.9 - Hypothyroidism, unspecified Status: Acute (5) Seizure disorder: Code(s): G40.909 - Epilepsy, unspecified, not intractable, without status epilepticus Status: Acute (6) Hypertension: Code(s): I10 - Essential (primary) hypertension Status: Acute (7) Cerebrovascular accident: Code(s): I63.9 - Cerebral infarction, unspecified Status: Acute (8) Type 2 diabetes mellitus: Code(s): E11.9 - Type 2 diabetes mellitus without complications Status: Acute (9) Diabetes: Code(s): E11.9 - Type 2 diabetes mellitus without complications Status: Acute (10) Obesity, morbid, BMI 40.0-49.9: Code(s): E66.01 - Morbid (severe) obesity due to excess calories Status: Acute Transfer Discharge Sum: Med Medications Active and Home Medications: Home Medications allopurinol 100 mg tablet 100 mg PO DAILY 08/02/19 [History Confirmed 05/10/22] aspirin 81 mg tablet,delayed release (Adult Aspirin Regimen) 81 mg PO DAILY 08/02/19 [History Confirmed 05/10/22] cholecalciferol (vitamin D3) 50 mcg (2,000 unit) tablet 2,000 unit PO DAILY 08/02/19 [History Confirmed 05/10/22] irbesartan 300 mg tablet 300 mg PO DAILY 08/02/19 [History Confirmed 05/10/22] metformin 500 mg tablet,extended release 24 hr 500 mg PO DAILY 08/02/19 [History Confirmed 05/10/22] oxybutynin chloride 5 mg tablet 5 mg PO DAILY 08/02/19 [History Confirmed 05/10/22] simvastatin 10 mg tablet 10 mg PO DAILY 08/02/19 [History Confirmed 05/10/22] cyanocobalamin (vitamin B-12) 500 mcg/spray nasal spray (Nascobal) 500 mcg intranasal DAILY 07/08/20 [History Confirmed 05/10/22] levetiracetam 500 mg tablet 500 mg PO Q12H 07/08/20 [History Confirmed 05/10/22] levothyroxine 50 mcg capsule 50 mcg PO DAILY 08/08/20 [History Confirmed 05/10/22] dulaglutide 1.5 mg/0.5 mL subcutaneous pen injector (Trulicity) 4.5 mg subcut WEEKLY 11/03/20 [History Confirmed 05/10/22] glimepiride 2 mg tablet 2 mg PO QAM 11/03
--- NOTE | 2022-05-12 13:05 | WPDNEUROPN ---
Progress Note: A&P Assessment and Plan (1) Intraparenchymal hemorrhage of brain: Code(s): I61.9 - Nontraumatic intracerebral hemorrhage, unspecified Status: Acute (2) Atrial tachycardia, paroxysmal: Code(s): I47.1 - Supraventricular tachycardia Status: Acute Plan patient's family was present in the room, the report of MRI was discussed with them thoroughly, it is not a surgical case and also she will not require any transfer to other room, they are comfortable staying in this room we will observe any change in the mental status at this particular time she is completely stable Time Spent With Patient Time with patient: 15 - 25 minutes Subjective Date/time seen: 05/12/22 13:05 Interval history: status post cerebrovascular accident with asymmetrical deep tendon reflexes and upgoing plantar response, no acute event head and neck CTA for territorial occlusion, initial CT scan of the brain negative but MRI of the brain documented acute infarct involving left frontoparietal region with small area of intraparenchymal hemorrhage in addition to extensive nonspecific cerebral white matter disease representing chronic small vessel ischemia patient is receiving aspirin 81 mg, levetiracetam 500 mg q.12 hours and diabetic treatment, cardiology consultation has been obtained for the paroxysmal atrial tachycardia though at present she is not in atrial fibrillation patient is also supposed to have in the near future knee surgery. Review of Systems Review of Systems: All systems reviewed & are unremarkable except as noted in HPI and below Exam Narrative: remains awake alert cooperative, able to carry out conversation with hesitancy and searching for the words. Obviously has right hemiparesis with hyperreflexia but no change in the level of consciousness Objective Data Vital Signs Vital Signs: Vital Signs - 24 hr 05/11/22 14:00 05/11/22 16:24 05/11/22 16:00 Temperature 37.1 C Pulse Rate 91 89 Respiratory Rate 16 Blood Pressure 117/65 Pulse Oximetry 94 Oxygen Delivery Room Air 05/11/22 20:00 05/11/22 22:00 05/11/22 20:00 Temperature 36.4 C L Pulse Rate 79 87 Respiratory Rate 17 Blood Pressure 113/74 Pulse Oximetry 98 Oxygen Delivery Room Air 05/12/22 00:00 05/12/22 04:00 05/12/22 06:00 Temperature 36.3 C L Pulse Rate 80 80 93 Respiratory Rate 16 Blood Pressure 142/88 H Pulse Oximetry 97 Oxygen Delivery 05/12/22 08:40 Temperature Pulse Rate Respiratory Rate Blood Pressure Pulse Oximetry Oxygen Delivery Room Air Intake/Output Intake/Output: Intake & Output 05/09/22 05/10/22 05/11/22 05/12/22 23:59 23:59 23:59 23:59 Intake Total 360 2260 150 Output Total 550 Balance 360 2260 -400 Meds/Results Medications: Active Medications Generic Name Dose Route Start Last Admin Trade Name Freq PRN Reason Stop Dose Admin Acetaminophen 500 mg 05/11/22 00:02 05/11/22 12:58 Acetaminophen 500 Mg Tablet PO 500 mg Q6H PRN Administration Pain Acetaminophen 650 mg 05/11/22 17:00 05/12/22 08:48 Acetaminophen 325 Mg Tablet PO 650 mg Q4HR BRONSON Administration Allopurinol 100 mg 05/11/22 21:00 05/11/22 20:56 Allopurinol 100 Mg Tablet PO 100 mg HS BRONSON Administration Atorvastatin Calcium 40 mg 05/11/22 21:00 05/11/22 20:56 Atorvastatin 40 Mg Tablet PO 40 mg HS BRONSON Administration Cyanocobalamin 500 mcg 05/11/22 09:00 05/12/22 08:43 Cyanocobalamin 500 Mcg Tablet PO 500 mcg QAM BRONSON Administration Dextrose 12.5 gm 05/11/22 00:00 Dextrose 50% 25 Gm/50 Ml Syringe IV PUSH PRN PRN Hypoglycemia Protocol Glucagon 1 mg 05/11/22 00:00 Glucagon For Inj 1 Mg Vial IM PRN PRN Hypoglycemia Protocol Glucose 15 gm 05/11/22 00:00 Glucose Oral Gel 15 Gm Of Glucse In 37.5 Gm Tube PO PRN PRN Hypoglycemia Protocol Dextrose 1,000 mls @ 100 mls/
[2022-05-12 14:00] VITALS: BP 136/91; PULSE 98; RESP 18; TEMP 37.2; O2SAT 95
== END 2022-05-12 14:10 | disposition short-term general hospital (02) | DRG 64 ==
LOC: ANHED 09:53 → ANH3MEDSUR 12:00
PROVIDERS: Physician Assistant; Admitting Provider Internal Medicine; Emergency Provider Emergency Medicine; PCP Nurse Practitioner Adult Health; Visit Provider Hospitalist
DX: I63.9 Cerebral infarction, unspecified (principal); I61.9 Nontraumatic intracerebral hemorrhage, unspecified; I47.1 Supraventricular tachycardia; G81.91 Hemiplegia, unspecified affecting right dominant side; Z68.41 Body mass index [BMI] 40.0-44.9, adult; R47.01 Aphasia; R29.705 NIHSS score 5; R29.810 Facial weakness; E03.9 Hypothyroidism, unspecified; E66.01 Morbid (severe) obesity due to excess calories; E78.5 Hyperlipidemia, unspecified; E79.0 Hyperuricemia without signs of inflammatory arthritis and tophaceous disease; E11.42 Type 2 diabetes mellitus with diabetic polyneuropathy; E55.9 Vitamin D deficiency, unspecified; G40.909 Epilepsy, unspecified, not intractable, without status epilepticus; I10 Essential (primary) hypertension; I48.91 Unspecified atrial fibrillation; Z20.822 Contact with and (suspected) exposure to COVID-19; Z96.641 Presence of right artificial hip joint; Z28.21 Immunization not carried out because of patient refusal; Z79.82 Long term (current) use of aspirin; Z79.84 Long term (current) use of oral hypoglycemic drugs; Z85.3 Personal history of malignant neoplasm of breast; Z85.42 Personal history of malignant neoplasm of other parts of uterus
CPT/HCPCS: 36415; 70450; 70496; 70498; 70553; 71045; 74018; 80053; 82948; 83036; 84439; 84443; 84480; 84484; 85025; 85027; 85610; 85730; 92523; 92610; 93005; 96374; 96375; 97161; 97166; 97530; 97535; 99285; A9270; A9577; C8929; G0378; J1815; J2405; Q9957; Q9967; U0003; U0005

== ENCOUNTER 2023-11-22 09:08 | Outpatient (CLI) | payer MEDICARE, BC, SELFPAY ==
--- NOTE | ~2023-11-22 | DEXA_ITS ---
Bone Density Report Name: SHAHEED MURPHY Age: 73 Sex: Female Ethnicity: White Date of : 1950 Indication: postmenopausal; screening for osteoporosis; height loss; cancer; seizure disorder; hysterectomy; Referring Provider: WESLEY, RITA Study: Bone densitometry was performed. Exam Date: November 22, 2023 Accession number: [id number] Bone Density: Region BMD T-score Z-score Classification AP Spine(L1-L4) 1.034 -0.1 2.2 Normal World Health Organization criteria for BMD impression classify patients as: Normal (T-score at or above -1.0), Osteopenia (T-score between -1.0 and -2.5), or Osteoporosis (T-score at or below -2.5). Clinical Information Provided by Patient: Has used the following medications: Vitamin D Has the following medical conditions: Any Seizure Disorders, Cancer, Hysterectomy Patient maximum height was 66 Menopause Age: 54 No regular weight bearing exercise Does not regularly consume dairy products Drinks caffeinated beverages Onset of menses at age 9 Number of children 3 Impression: The patient has normal bone mass. Discussion: LOW RISK OF FRACTURE; BONE DENSITY IS WELL ABOVE THE MINIMUM DESIRABLE LEVEL AND ABOVE AVERAGE FOR AGE AND SEX AT ALL SKELETAL SITES TESTED. This person's bone density is above expected limits for age and sex. This is rarely clinically significant, but should be pursued if there are significant musculoskeletal complaints. The patient should follow a healthful lifestyle (good nutrition with adequate calcium and vitamin D, and appropriate weight-bearing exercise). Follow-Up: Consider repeating this study in 5 years or sooner if there is some new clinical indication. Reported by: PELON on 11/22/2023 9:49:00 AM. Reviewed, dictated and finalized at [facility]
== END 2023-11-22 09:09 | disposition home or self-care (01) ==
PROVIDERS: PCP Internal Medicine; Visit Provider Internal Medicine
DX: Z78.0 Asymptomatic menopausal state (principal)
CPT/HCPCS: 77080

== ENCOUNTER 2024-03-19 10:18 | Outpatient (CLI) | payer MEDICARE, BC, SELFPAY ==
--- NOTE | ~2024-03-19 | US_ITS ---
EXAMINATION: US thyroid DATE: 03/19/2024 10:41 INDICATION: Thyroid nodule. TECHNIQUE: Multiple ultrasound images of the thyroid were obtained. COMPARISON: None. FINDINGS: The right thyroid lobe measures 4.5 x 1.3 x 1.8 cm. The left thyroid lobe measures 4.0 x 1.8 x 1.5 c m. In the right thyroid lobe, there is an 8 mm solid, hypoechoic, wider than tall nodule with smooth margin without echogenic foci (TI-RADS TR4). In the left thyroid lobe, there is 11 mm solid, hypoech oic, wider than tall nodule with ill-defined margin without echogenic foci (TR4). The left thyroid lo be, there is a 6 mm solid, hypoechoic, wider than tall nodule with smooth margin without echogenic fo ci (TR4). IMPRESSION: 1. Multinodular goiter. Thyroid ultrasound is recommended in one year. Reviewed, dictated and finalized at location A.
== END 2024-03-19 10:19 | disposition home or self-care (01) ==
LOC: MICIMG 10:19
PROVIDERS: PCP Internal Medicine; Visit Provider Internal Medicine
DX: E04.2 Nontoxic multinodular goiter (principal)
CPT/HCPCS: 76536